=== PATIENT | female | born 1940 | race Caucasian/White ===

== ENCOUNTER 2018-02-11 16:40 | Emergency (ER) | payer OTHER ==
[~2018-02-11] VITALS: Ht 154.9 cm; Wt 64.0 kg
[2018-02-11 17:15] VITALS: BP_SYST 169
[2018-02-11] MEDS ORDERED: BACITRACIN 1 GM OINT TP ONE (18:30)
[2018-02-11 18:41] VITALS: BP_SYST 124
== END 2018-02-11 18:41 | disposition home or self-care (01) ==
LOC: SED 16:40
DX: S00.03XA Contusion of scalp, initial encounter (principal); E11.9 Type 2 diabetes mellitus without complications; I10 Essential (primary) hypertension; W18.30XA Fall on same level, unspecified, initial encounter; Y92.89 Other specified places as the place of occurrence of the external cause; Y93.89 Activity, other specified; Y99.8 Other external cause status
CPT/HCPCS: 99283

== ENCOUNTER 2023-04-14 13:34 | Emergency (ER) | payer OTHER, MEDICAID ==
[~2023-04-14] VITALS: Ht 157.5 cm; Wt 59.0 kg
[2023-04-14 14:17] VITALS: BP_SYST 130
--- NOTE | 2023-04-14 15:22 | NUR ---
Patient to ER CHAIR for evaluation.
--- NOTE | 2023-04-14 15:25 | NUR ---
PT BROUGHT WITH FAMILY COMPLAINING OF RIGHT FOREARM PAIN. PATIENT REPORTS SHE FELL LAST NIGHT WHEN WALKING TO HER BED AND HIT HER ARM AGAIN THE WALL. DENIES ANY KO. LIMITED ROM. PAIN 2
--- NOTE | 2023-04-14 15:36 | NUR ---
ER at bedside examining patient.
--- NOTE | 2023-04-14 16:56 | NUR ---
DR. ROMAN DISCUSSING RESULTS WITH PATIENT
[2023-04-14 17:45] VITALS: BP_SYST 130
--- NOTE | 2023-04-14 17:45 | NUR ---
Patient given written and verbal discharge instructions and verbalizes understanding. ER MD discussed with patient the results and treatment provided. Patient in stable condition. ID arm band removed. NO RX. Patient educated on pain management and to follow up with PMD. Pain Scale 0/10 Opportunity for questions provided and answered.
== END 2023-04-14 17:45 | disposition home or self-care (01) ==
LOC: SED 13:34
DX: S52.351A Displaced comminuted fracture of shaft of radius, right arm, initial encounter for closed fracture (principal); E11.9 Type 2 diabetes mellitus without complications; I10 Essential (primary) hypertension; Z79.899 Other long term (current) drug therapy; W22.09XA Striking against other stationary object, initial encounter; Y93.89 Activity, other specified; Y92.89 Other specified places as the place of occurrence of the external cause; Y99.8 Other external cause status
CPT/HCPCS: 99283